=== PATIENT | female | born 1940 | race Caucasian/White ===

== ENCOUNTER → 2016-08-22 | Outpatient (CLI) | payer OTHER ==
[~2016-08-22] MED LIST: AZELASTINE 0.15%; CELEBREX PO; COMBIGAN EYE DRO5 ML; DIAZEPAM PO; ELMIRON100 MG PO; LIPITOR20 MG PO; MINOCIN50 MG PO; MONTELUKAST SOD10 MG PO; NEXIUM PO; RESTASIS32 EA OU; SYNTHROID125 PO
--- NOTE | ~2016-08-22 | CT55 ---
[facility] [place]. [facility] A Service of [facility] RADIOLOGY TEXT RESULTS PATIENT: LIBERTAD GARCIA LOCATION: [facility] [place] : 36 UNIT #: [id number] AGE: [address]: Mauro Carrasquillo MD SEX: F ORDER DR: [id number] [place] [id number] O MR#: [id number] Acc #: [id number] NAME: LIBERTAD GARCIA : 1940 SEX: F STUDY DATE/TIME: 08/22/2016 14:33 UNIT: [facility] [place] ROOM: STUDY DESCRIPTION: CT Chest W Con Attending Physician: Mauro Carrasquillo M.D. Referring Physician: Mauro Carrasquillo M.D. Ordering Physician: Mauro Carrasquillo M.D. Primary Care Physician: Mauro Carrasquillo M.D. MEDICAL IMAGING REPORT This report is preliminary unless electronic signature is present. EXAM CT chest INDICATION Left-sided chest pain radiating under the left breast. 3-[address] of the thorax utilizing 70 mL Isovue-370 IV contrast. Coronal and sagittal reconstructions were obtained. This CT exam was performed with one or more of the following radiation dose reduction techniques: automatic exposure control, adjustment of mA and/or kV according to patient size, and iterative reconstruction. COMPARISON Chest radiograph dated 03/25/2013. CT chest dated 11/13/2006. FINDINGS No thoracic aortic aneurysm or dissection. There is no pericardial or pleural effusion. The thoracic aorta is normal in size. There is mild parenchymal scarring in the right lung apex. No discrete nodule. There is mild background COPD. Central airways are patent. There is a linear area of parenchymal scarring in the lingula. This area is unchanged from the 2006 comparison. Patient appears to be status post left mastectomy with subsequent reconstruction. There is old left anterolateral third and fourth rib fractures. No new osseous abnormalities. Limited images of the upper abdomen were obtained. There are a few small cysts in the liver. IMPRESSION [facility] A Service of [facility] RADIOLOGY TEXT RESULTS PATIENT: LIBERTAD GARCIA LOCATION: [facility] [place] : 36 UNIT #: [id number] AGE: [address]: Mauro Carrasquillo MD SEX: F ORDER DR: 1. No acute findings to account for the patient's symptoms. 2. Old left anterolateral third and fourth rib fractures. Dictated by... Obey Bacon M.D. THIS IS AN ELECTRONICALLY VERIFIED REPORT Obey Bacon M.D. at 08/22/2016 10:05 PM KENN/carlota TD: 08/22/2016 19:30 JOB #: [id number] MEDICAL IMAGING REPORT Page 1 of 1
[2016-08-22 14:35] LABS: POC - CREATININE 0.74 mg/dL (0.44-1.03); POC - GFR >60.0 mL/min (>60)
== END | disposition home or self-care (01) ==
LOC: SCT 14:19
PROVIDERS: Family Medicine
DX: C50.919 Malignant neoplasm of unspecified site of unspecified female breast (principal); R07.9 Chest pain, unspecified
CPT/HCPCS: 71260; 82565; Q9967